=== PATIENT | female | born 1955 | race Caucasian/White ===

== ENCOUNTER → 2024-08-25 14:33 | Outpatient (REF) | payer MEDICARE, SELFPAY | LOC: EMG 14:33 | PROVIDERS: ATTENDING PHYSICIAN Pain Medicine Interventional Pain Medicine; FAMILY PHYSICIAN Nurse Practitioner | DX: M54.12 Radiculopathy, cervical region (principal) | CPT/HCPCS: 95886; 95911 ==

== ENCOUNTER → 2024-09-14 12:37 | Outpatient (REF) | payer MEDICARE, SELFPAY | LOC: MRI 3T 12:37 | PROVIDERS: ATTENDING PHYSICIAN Pain Medicine Interventional Pain Medicine; FAMILY PHYSICIAN Nurse Practitioner | DX: M54.12 Radiculopathy, cervical region (principal) | CPT/HCPCS: 72141 ==

== ENCOUNTER → 2024-10-07 07:26 | Outpatient (REF) | payer MEDICARE, SELFPAY | LOC: MRI 3T 07:26 | PROVIDERS: ATTENDING PHYSICIAN Specialist; FAMILY PHYSICIAN Nurse Practitioner | DX: G35 Multiple sclerosis (principal) | CPT/HCPCS: 70553; A9575 ==

== ENCOUNTER → 2024-10-22 08:09 | Outpatient (REF) | payer MEDICARE, SELFPAY | LOC: HWWDC 08:09 | PROVIDERS: ATTENDING PHYSICIAN Obstetrics & Gynecology Gynecology; FAMILY PHYSICIAN Nurse Practitioner Adult Health | DX: Z12.31 Encounter for screening mammogram for malignant neoplasm of breast (principal) | CPT/HCPCS: 77063; 77067 ==

== ENCOUNTER 2025-06-30 06:19 | Day surgery (SDC) | payer MEDICARE, SELFPAY | END 2025-06-30 08:58 | disposition home or self-care (01) | LOC: GI 06:19 | PROVIDERS: ATTENDING PHYSICIAN Internal Medicine Gastroenterology | DX: Z12.11 Encounter for screening for malignant neoplasm of colon (principal); D12.3 Benign neoplasm of transverse colon; K57.30 Diverticulosis of large intestine without perforation or abscess without bleeding; Q43.8 Other specified congenital malformations of intestine; K64.8 Other hemorrhoids; K64.4 Residual hemorrhoidal skin tags | CPT/HCPCS: 45380; 88305 ==

== ENCOUNTER 2025-09-17 05:46 | Inpatient (IN) | payer MEDICARE, SELFPAY ==
--- NOTE | 2025-07-10 13:37 | CM ---
CM was updated by orthopedics that patient is pending surgery on 09/17. Due to patient's comorbidities, she may be a candidate for acute rehab. CM spoke with patient and to update on discharge planning barriers to Acute Rehab. Patient stated
that she does not want to go to SNF and would prefer acute rehab.
Patient was tearful that she may not qualify clinically for acute rehab. CM spoke with who stated that if she does not go to rehab then Dr. Majano has another plan. CM questioned regarding Dr. Majano's alternative discharge plan.
Patient's stated that he doesn't know, but Dr. Majano will 'take care of it'.
Cm will remain available as needed for discharge planning.
[2025-09-03 13:40] VITALS: BMI 25.8
[2025-09-03 14:31] VITALS: BMI 25.8
[2025-09-03 14:58] LABS: Hematocrit 41.5 % (37.0-47.0); Hemoglobin 13.6 g/dL (12.0-16.0); Mean Corp Hgb Conc. 32.8 g/dL (33.0-37.0); Mean Corpuscular Volume 90.4 fL (81.0-99.0); Platelet Count 335 10^3/uL (130-400); Red Cell Dist. Width 12.8 % (11.5-14.5)
[2025-09-03 15:31] LABS: ALT (SGPT) 14 U/L (0-35); AST (SGOT) 18 U/L (14-36); Albumin 4.5 g/dl (3.5-5.0); Alkaline Phosphatase 65 U/L (38-126); Blood Urea Nitrogen 22 mg/dl (7-17); Calcium 9.7 mg/dl (8.4-10.2); Carbon Dioxide 30 mmol/L (22-30); Chloride 104 mmol/L (98-107); Estimated Creatinine Clearance 57 ml/min; Glucose 77 mg/dl (70-99); Potassium 4.6 mmol/L (3.5-5.1); Sodium 143 mmol/L (135-145); Total Protein 7.1 g/dl (6.3-8.2); eGFR > 60.00
[2025-09-04 12:38] LABS: Glycohemoglobin (HgbA1c) 5.3 % (4.0-5.9)
--- NOTE | 2025-09-09 13:10 | CM ---
CM spoke with patient patient and patient would be agreeable to SNF. Patient's has suggested [facility] for SNF. CM will continue to follow patient for appropriate discharge plan.
[2025-09-17] VITALS (13 sets, daily range): BP systolic 105–152; BP diastolic 54–85; PULSE 90; O2SAT 98; BMI 25.8
[2025-09-17] MEDS: TYLENOL 650 MG PO ×5 (06:36→23:36)
[2025-09-17] MEDS: NORMOSOL-R/PLASMALYTE-A 1000 IV ×2 (06:37→10:51)
[2025-09-17] MEDS: MOBIC 15 MG PO (06:37)
--- NOTE | 2025-09-17 07:34 | W.PN.UPDATE ---
Update Note
Progress Note Update
L knee OA s/p L TKA w/ Dr Majano 09/17/25
- s/p R TKA, 08/2018, by Dr Majano
DVT prophylaxis - ASA, b/l venous foot pumps
Ambulatory dysfunction
Multiple sclerosis with right sided facial hemispasm, on daily Glatopa
- On fall precautions
- Work w/ PT and OT as able
- Pt advised to bring in Glatopa to be used during inpatient stay
Hypercholesterolemia
Schatzki's ring
Esophageal hyperplastic polyp
Colon polyps
Diverticulosis
Hemorrhoids
Multilevel degenerative disc disease
Restless leg syndrome
Spinal stenosis
Overactive bladder with stress incontinence
Reported MRSA positive right hand wound, prior to 2017; 2 negative swabs since diagnosis
Discharge planning: The patient would likely benefit from a rehab facility upon discharge. [facility] is preferred; however, if she does not qualify, she would be willing to go to [facility] or [facility]. CM aware.
[2025-09-17] MEDS: SUBLIMAZE 25 MCG IV (09:15)
[2025-09-17] MEDS: ULTRAM 50 MG PO (10:12)
[2025-09-17] MEDS: TORADOL 30 MG IV (10:51)
[2025-09-17] MEDS: ANCEF 5 IV ×2 (14:11→22:01)
[2025-09-17] MEDS: FLORASTOR 250 MG PO ×2 (14:11→20:29)
--- NOTE | 2025-09-17 16:01 | W.PN.UPDATE ---
Update Note
Progress Note Update
Patient doing well. VSS. Sitting in a chair OOB and has walked into the bathroom with a walker. Pulm: nonlabored. CV: regular. LLE: Dressing CDI. NVI distally. Able to fully extend. ASA for DVT prophylaxis. With her history of MS, would
benefit from acute rehab if availalble.
[2025-09-17] MEDS: ASPIRIN 325 MG PO (17:30)
--- NOTE | 2025-09-17 19:21 | PTCARENOTE ---
Addendum entered by Alma Johnston RN 09/18/25 00:27:
Pharmacy sent back medication unverified as they have them in their formulary. 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
Original Note:
PCT came to me and informed me that pt took two of her home medications. When I went and spoke with the pt, she admitted to taking her home gabapenting 400mg and baclofen 10mg which she had at bedside. She said that during her workup for surgery,
someone had told her should could bring in those medications from home and take them. I informed the pt that pts cannot administer their own medications from home without them being verified by pharmacy and administered by the RN. Pt agreeable and
apologetic. Pt's gabapentin and baclofen sent to pharmacy for verification. Will continue to monitor.
[2025-09-17] MEDS: LIORESAL 10 MG PO (19:26)
[2025-09-17] MEDS: NEURONTIN 400 MG PO (19:26)
[2025-09-17] MEDS: DECADRON 4 MG PO (20:28)
[2025-09-17] MEDS: SENOKOT 17.2 MG PO (20:29)
[2025-09-17] MEDS: BACTROBAN 2% OINTMENT 1 APPLIC NASAL (20:30)
[2025-09-17] MEDS: COLACE 100 MG PO (20:30)
[2025-09-17] MEDS: PEPCID 20 MG PO (20:31)
[2025-09-18 03:00] VITALS: BP 123/61
[2025-09-18] MEDS: TYLENOL PO (04:52)
--- NOTE | 2025-09-18 07:27 | W.PN.ORTHO ---
Today's Communication / Plan
-
Patient would likely benefit from an acute care rehab short stay with her MS if possible
Assessment
.
Distal Motor Intact: Yes
Dressing:
Clean, dry and intact.
Assessment:
Doing well s/p L TKR
Plan
.
Surgery / Date: 09/17/2025 L TKR DB
DVT Prophylaxis: Aspirin
Activity:
Out of bed.
PT/OT
Discharge Plan: Rehab
Discharge Information:
Patient doing well.
Subjective
.
.:
Patient resting comfortably. OOB yesterday
Vital Signs and Labs
.
Vital Signs and Labs:
Lab Results
09/03/25 13:33
09/03/25 13:33
Temp Pulse Resp BP Pulse Ox
97.6 F 87 20 123/61 96
09/18/25 03:00 09/18/25 03:00 09/18/25 03:00 09/18/25 03:00 09/18/25 03:00
Non-invasive Hgb result: 12.9
Physical Exam
-
Pulm: nonlabored
CV: regular
LLE: Dressing CDI. Calf soft. Able to fully extend.
[2025-09-18 08:01] VITALS: BP 116/60
[2025-09-18] MEDS: SENOKOT 17.2 MG PO (08:27)
[2025-09-18] MEDS: TYLENOL 650 MG PO ×2 (08:27→12:31)
[2025-09-18] MEDS: COLACE 100 MG PO (08:27)
[2025-09-18] MEDS: FLORASTOR 250 MG PO (08:28)
[2025-09-18] MEDS: ASPIRIN 325 MG PO (08:28)
[2025-09-18] MEDS: VITAMIN C 2000 MG PO (08:28)
[2025-09-18] MEDS: BACTROBAN 2% OINTMENT 1 APPLIC NASAL (08:28)
[2025-09-18] MEDS: DECADRON 4 MG PO (08:28)
[2025-09-18] MEDS: MOBIC 15 MG PO (08:28)
--- NOTE | 2025-09-18 08:28 | CM ---
Addendum entered by Brandie Gómez RN 09/18/25 10:47:
[facility] is able to accept today. CM updated orthopedic PA, bedside RN and patient. Patient is enthusiastic for transfer.
PLAN: [facility]
Addendum entered by Brandie Gómez RN 09/18/25 09:28:
Patient has been accepted to [facility]. CM is awaiting final bed availability notification. CM updated patient and .
Original Note:
CM reviewed medical records. Patient has been recommended for Acute Rehab. CM sent referral via [facility] to [facility] rehab. CM further sent referrals to [facility] for an alternative level of care.
PLAN: Pending [facility] Acceptance.
[2025-09-18] MEDS: NON-FORMULARY ITEM 20 MG SC (08:29)
[2025-09-18] MEDS: ULTRAM 50 MG PO (08:37)
--- NOTE | 2025-09-18 10:33 | W.PN.ORTHO ---
Today's Communication / Plan
-
d/c
Assessment
.
Distal Motor Intact: Yes
Dressing:
Clean, dry and intact.
Assessment:
MS-fall precautions
Plan
.
Surgery / Date: 09/17/2025 L TKR DB
DVT Prophylaxis: Aspirin (+SCD device)
Activity:
Out of bed.
PT/OT
Discharge Plan: Rehab
Subjective
.
.:
Patient resting comfortably.
Vital Signs and Labs
.
Vital Signs and Labs:
Lab Results
09/03/25 13:33
09/03/25 13:33
Temp Pulse Resp BP Pulse Ox
98.5 F 88 18 116/60 98
09/18/25 08:01 09/18/25 08:01 09/18/25 08:01 09/18/25 08:01 09/18/25 08:01
Non-invasive Hgb result: 12.9
Physical Exam
-
HEENT: No pallor, cyanosis, or jaundice. Throat clear.
NECK: Supple. No JVD.
RESPIRATORY: Lungs clear to auscultation.
CVS: S1, S2 normal. RRR.� No murmur, rub or gallop.
ABDOMEN: Soft, non-tender. No distension. BS+/normal.
EXTREMITIES: strength equal, no calf pain with palpation
BENCHRO[employer] SHOP OPTICIAN: AOx3. No focal deficits. general operator grossly intact
--- NOTE | 2025-09-18 10:35 | W.DS.TRANS ---
DC Summary - [facility]
-
Discharge Instructions:
Sleep Apnea Risk Low
Discharge Diagnosis/Procedures L knee OA s/p L TKA w/ Dr Majano 09/17/25
Diet Regular
Additional Diets Adequate hydration, minimize opioids, and wear
TEDs stockings to prevent low blood pressure/
dizziness.
Activity As tolerated,With Walker
Driving Restrictions Not until seen by your Dr
Bathing Restrictions OK to Shower
Other Services PT,OT
Wound Care Dressing to be removed 1 week post-surgery.
Bj to be removed at 2 week follow-up with
surgeon's office.
Instructions:
Stand-Alone Forms: Total Hip/Knee Replacement D/C
Changes to Home Medications: Yes
Discharge Medications:
DC Medications w/original date entered in [facility]
gabapentin 400 mg capsule 400 mg PO HS neuropathic pain 07/15/18
Fish Oil 2 cap PO DAILY Supplement 08/31/25
Held on 09/17/25. Instructions: Resume on 09/24/25.
ascorbic acid (vitamin C) 1,000 mg tablet (Vitamin C) 2,000 mg PO DAILY Supplement 08/31/25
baclofen 10 mg tablet 10 mg PO HS Muscle Spasms 08/31/25
calcium carbonate (Calcium 600) 1,200 mg PO DAILY Supplement 08/31/25
glatiramer 20 mg/mL subcutaneous syringe (Glatopa) 20 mg SC DAILY Multiple sclerosis, relap 08/31/25
mupirocin 2 % topical ointment 1 applic intranasal BID #1 tube 09/03/25
cefadroxil 500 mg capsule 500 mg PO BID #14 caps 09/14/25
dexamethasone 4 mg tablet 4 mg PO BID Anti-inflammatory #5 tabs 09/14/25
famotidine 20 mg tablet (Pepcid) 20 mg PO HS #30 tabs 09/14/25
meloxicam 15 mg tablet 15 mg PO DAILY #14 tabs 09/14/25
ondansetron HCl 4 mg tablet 4 mg PO Q6H PRN nausea and vomiting #30 tabs 09/14/25
tramadol 50 mg tablet 50 - 100 mg (1 - 2 x 50 mg) PO Q6H PRN moderate-severe pain #15 tabs 09/14/25
Saccharomyces boulardii 250 mg capsule (Florastor) 250 mg PO BID #14 caps 09/17/25
acetaminophen 325 mg tablet 650 mg (2 x 325 mg) PO Q4HWA #30 tabs 09/17/25
aspirin 325 mg tablet 325 mg PO DAILY #30 tabs 09/17/25
docusate sodium 100 mg capsule 100 mg PO BID #30 caps 09/17/25
polyethylene glycol 3350 17 gram oral powder packet (Miralax) 17 g PO DAILY PRN Constipation #14 ea 09/17/25
sennosides 8.6 mg tablet (Yoly-sal) 17.2 mg (2 x 8.6 mg) PO BID #30 tabs 09/17/25
Home Medication Changes
mupirocin 2 % topical ointment 1 applic intranasal BID #1 tube 09/03/25
cefadroxil 500 mg capsule 500 mg PO BID #14 caps 09/14/25
dexamethasone 4 mg tablet 4 mg PO BID Anti-inflammatory #5 tabs 09/14/25
famotidine 20 mg tablet (Pepcid) 20 mg PO HS #30 tabs 09/14/25
meloxicam 15 mg tablet 15 mg PO DAILY #14 tabs 09/14/25
ondansetron HCl 4 mg tablet 4 mg PO Q6H PRN nausea and vomiting #30 tabs 09/14/25
tramadol 50 mg tablet 50 - 100 mg (1 - 2 x 50 mg) PO Q6H PRN moderate-severe pain #15 tabs 09/14/25
Saccharomyces boulardii 250 mg capsule (Florastor) 250 mg PO BID #14 caps 09/17/25
acetaminophen 325 mg tablet 650 mg (2 x 325 mg) PO Q4HWA #30 tabs 09/17/25
aspirin 325 mg tablet 325 mg PO DAILY #30 tabs 09/17/25
docusate sodium 100 mg capsule 100 mg PO BID #30 caps 09/17/25
polyethylene glycol 3350 17 gram oral powder packet (Miralax) 17 g PO DAILY PRN Constipation #14 ea 09/17/25
sennosides 8.6 mg tablet (Yoly-sal) 17.2 mg (2 x 8.6 mg) PO BID #30 tabs 09/17/25
Pending Results: No
[2025-09-18 12:04] VITALS: BP 120/68
== END 2025-09-18 12:56 | DRG 470 ==
LOC: 2 SOUTH 05:46
PROVIDERS: ADMITTING PHYSICIAN Orthopaedic Surgery; FAMILY PHYSICIAN Nurse Practitioner Adult Health; REFERRING PHYSICIAN Specialist
PROC: 0SRD0J9 Replacement of Left Knee Joint with Synthetic Substitute, Cemented, Open Approach (ICD-10-PCS; 2025-09-17)
DX: M17.12 Unilateral primary osteoarthritis, left knee (principal); E78.00 Pure hypercholesterolemia, unspecified; K57.30 Diverticulosis of large intestine without perforation or abscess without bleeding; G35.D Multiple sclerosis, unspecified; G25.81 Restless legs syndrome; N32.81 Overactive bladder; N39.3 Stress incontinence (female) (male); M48.00 Spinal stenosis, site unspecified; Z88.2 Allergy status to sulfonamides
CPT/HCPCS: 73560; 80053; 83036; 85027; 87070; 97116; 97163; 97167; C1713; C1776

== ENCOUNTER 2025-09-19 22:01 | Emergency (ER) | payer MEDICARE, SELFPAY ==
[2025-09-19 22:09] VITALS: BP 127/74
[2025-09-19 22:18] VITALS: BMI 27.6
[2025-09-19 22:19] VITALS: BP 108/69
[2025-09-19 22:33] VITALS: BP 115/64
[2025-09-19 22:34] LABS: Hematocrit 36.7 % (37.0-47.0); Hemoglobin 12.3 g/dL (12.0-16.0); Mean Corp Hgb Conc. 33.5 g/dL (33.0-37.0); Mean Corpuscular Volume 87.4 fL (81.0-99.0); Nucleated Red Blood Cells % 0 %; Platelet Count 328 10^3/uL (130-400); Red Cell Dist. Width 13.0 % (11.5-14.5)
[2025-09-19] MEDS: NSS 1000 IV (22:38)
[2025-09-19 22:58] LABS: ALT (SGPT) 14 U/L (0-35); AST (SGOT) 18 U/L (14-36); Albumin 3.7 g/dl (3.5-5.0); Alkaline Phosphatase 81 U/L (38-126); Blood Urea Nitrogen 24 mg/dl (7-17); Calcium 9.0 mg/dl (8.4-10.2); Carbon Dioxide 25 mmol/L (22-30); Chloride 107 mmol/L (98-107); Estimated Creatinine Clearance 74 ml/min; Glucose 115 mg/dl (70-99); Magnesium 1.9 mg/dl (1.6-2.3); Potassium 4.2 mmol/L (3.5-5.1); Sodium 135 mmol/L (135-145); Total Protein 6.4 g/dl (6.3-8.2); eGFR > 60.00
[2025-09-19 23:00] VITALS: BP 114/63
--- NOTE | 2025-09-19 23:24 | ED.GENMED ---
History of Present Illness
General
Chief Complaint: Heart Rate Problem
Source: patient
Time Seen by Provider: 09/19/25 22:18
History of Present Illness
History of Present Illness:
Note:
CHIEF COMPLAINT(S)
Increased heart rate diagnosed during vital sign check after knee replacement surgery.
HISTORY OF PRESENT ILLNESS
The patient is a 70-year-old female who experienced an elevated heart rate following physical therapy after recent knee replacement surgery. She underwent the surgery on and reported having three hours of physical therapy today, during
which she experienced significant discomfort. The elevated heart rate was noted during routine vital sign checks and was not accompanied by subjective symptoms such as palpitations, fluttering sensations, chest pain, or shortness of breath. She has
a history of similar episodes during a previous colonoscopy, though no definitive diagnosis of atrial fibrillation was made, and no follow-up with cardiology was required. The patient is currently on aspirin.
PAST MEDICAL AND SURGICAL HISTORY
Recent knee replacement surgery on the left knee.
MS
CHRONIC MEDICAL CONDITIONS SIGNIFICANTLY AFFECTING CARE
Chronic left facial nerve palsy.
ALLERGIES
Sulfa drugs.
REVIEW OF SYSTEMS
- Cardiovascular: No chest pain, no palpitations, history of episodic tachycardia noted during colonoscopy.
- Respiratory: No shortness of breath, no coughing up blood.
- General: No subjective complaints of palpitations or discomfort leading to the raised heart rate diagnosis.
PHYSICAL EXAM
General: Alert, no acute distress.
Skin: Warm and dry.
Head: Normocephalic, atraumatic. Left facial nerve palsy noted as chronic.
Neck: Supple, trachea midline.
Eye, Ears, Nose, Mouth, and Throat: Oral mucosa moist.
Cardiovascular: Heart regular but tachycardic. No edema. Normal peripheral perfusion.
Respiratory: Lungs clear to auscultation, respirations non-labored.
Gastrointestinal: Abdomen nondistended.
Back: Normal range of motion, normal alignment.
Musculoskeletal: Presence of dressing with some swelling over the left lower limb, no redness or drainage. Normal range of motion maintained.
Neurological: Alert and oriented to person, place, time, and situation.
Psychiatric: Cooperative, appropriate mood, and affect.
PROBLEM LIST
- Acute tachycardia
- Postoperative pain and discomfort following knee replacement surgery
- Chronic left facial nerve palsy
PLAN
- Initiate fluid resuscitation to address possible dehydration from recent surgery and physical therapy.
- Administer medications to reduce heart rate
- Monitor vital signs closely to assess for resolution of tachycardia.
- Consider alternative options if the heart rate does not normalize, with further conversation to address next steps if necessary.
DIFFERENTIAL DIAGNOSIS
The Differential Diagnosis includes, in no particular order and is not limited to:
- Postoperative atrial tachycardia
- Dehydration following surgery
- Medication side effects (such as those from anesthetics or postoperative medications)
- Pulmonary embolism
- Electrolyte abnormalities
- Pain or discomfort from physical therapy as a trigger
- Atrial fibrillation or flutter
- Anesthesia-related cardiac effects
- Stress or anxiety-related palpitations
- Underlying cardiac arrhythmia not previously diagnosed
EKG
My independent EKG interpretation is:
- Rhythm: Atrial Fibrillation
- Heart Rate: 146 bpm
- [place]: Normal
- QRS Interval: Normal
- Notable Abnormalities: None mentioned
Disposition:
SUMMARY OF ENCOUNTER
The patient is a 70-year-old female who presented with a history of rapid atrial fibrillation two days post knee replacement surgery. She had a previous episode of a fast heart rate during a colonoscopy without a definitive diagnosis. Upon arrival,
the patient converted to normal sinus rhythm and remained stable throughout the evaluation.
DISPOSITION
Patient to be discharged with follow-up care.
ASSESSMENT
1. Acute atrial fibrillation, post-surgery
2. Previous episodes of tachycardia without diagnosis
EMERGENCY TREATMENTS ADMINISTERED
Patient transitioned to normal sinus rhythm spontaneously.
MANAGEMENT OF THE PATIENTS CARE WAS DISCUSSED WITH
Discussion with orthopedics confirmed it was appropriate to restart anticoagulation with apixaban
Discussion with cardiology, Dr. Frazier, recommended restarting apixaban and initiating diltiazem ER (Cardizem CD) 120 mg.
PLAN
- Restart apixaban (Eliquis) for anticoagulation.
- Initiate diltiazem extended-release 120 mg daily.
- Discharge with follow-up arranged with the cardiology department who will follow her at [facility].
INDEPENDENT REVIEW OF LABS AND INTERPRETATION OF TESTS
My independent review of CBC indicates slight leukocytosis at 13.1.
PATIENT EDUCATION AND COUNSELING
The patient was advised on the importance of follow-up care with cardiology, adherence to prescribed medications, and monitoring for any recurrent symptoms.
FOLLOW-UP INSTRUCTIONS
Follow up with cardiology at [facility] as arranged, and ensure regular monitoring post-discharge.
MEDICATION RECONCILIATION
- start apixaban (Eliquis).
- Diltiazem extended-release (Cardizem CD) 120 mg daily.
MEDICAL DECISION MAKING
Number and Complexity of Problems Addressed: Chronic conditions affecting care include history of episodic tachycardia.
- Data:
Category 1
- CBC reviewed.
Category 2
- My independent interpretation of EKG showed conversion to normal sinus rhythm.
Category 3
- Discussion of management with orthopedics and cardiology, Dr. Wheeler.
-Risk:
Prescription medication was prescribed: apixaban and diltiazem ER.
DIAGNOSIS
1. Atrial fibrillation, postoperative (ICD-10: I48.91)
Past History
Past History
ED Past Medical History: Other (multiple sclerosis)
Social History
Personal:
Phy Exam
Physical Exam
Physical Exam:
.
Course
Orders/Labs/Results
Orders:
Orders
09/19/25 22:03
EKG [Electrocardiogram (*1)] Urgent
Reason for Study: Atrial Fibrillation
EKG- Treatment ONCE
09/19/25 22:27
Complete Blood Count/With Diff Urgent
Comprehensive Metabolic Panel Urgent
Free T4 Urgent
Magnesium Urgent
TSH Reflex To Free T4 Urgent
09/19/25 22:31
0.9% Sodium Chloride 1000 ml [Nss] 1,000 ml IV BOLUS
09/19/25 22:33
EKG [Electrocardiogram (*1)] Urgent
Reason for Study: Atrial Fibrillation
EKG- Treatment ONCE
09/19/25 23:24
Apixaban [Eliquis] 5 mg PO NOW ONE
09/19/25 23:38
Diltiazem Extended Release [Cardizem Cd] 120 mg PO NOW STA
Abnormal Lab Results
09/19/25
22:27
WBC 13.1 H 10^3/uL
(4.8-10.8)
Hct 36.7 L %
(37.0-47.0)
MPV 10.8 H fL
(7.4-10.4)
Abs Immat Gran (auto) 0.1 H 10^3/uL
(0-0.05)
Absolute Neuts (auto) 10.1 H 10^3/uL
(1.4-6.5)
Absolute Monos (auto) 1.2 H 10^3/uL
(0.1-0.6)
Neutrophils % 77.2 H %
(42.2-75.2)
Lymphocytes % 12.9 L %
(20.5-51.1)
BUN 24 H mg/dl
(7-17)
Creatinine 0.5 L mg/dL
(0.6-1.0)
Glucose 115 H mg/dl
(70-99)
TSH (Reflex) 0.31 L uIU/ml
(0.47-4.68)
09/19/25 22:27
09/19/25 22:27
Vital Signs
Initial and Last Documented VS:
Initial Vital Signs
Temp Pulse Resp BP Pulse Ox
98.3 F 148 20 127/74 95
09/19/25 22:09 09/19/25 22:09 09/19/25 22:09 09/19/25 22:09 09/19/25 22:09
Last Documented Vital Signs
Temp Pulse Resp BP Pulse Ox
98.3 F 86 15 126/67 94
09/19/25 22:09 09/20/25 00:04 09/20/25 00:00 09/20/25 00:04 09/20/25 00:00
*Pulse Oximetry
SaO2: 96
Oxygen Mode of Delivery: Room air
Patient hypoxic: no
*Outside Sales Associate Interpretation
Rate: tachycardiac
Interpretation: abnormal
Rhythm: a-fib
*Critical Care Note
Total Time (30-74mins, 75-104mins- exclusive of procedures): 30 minutes
ED Attending Note
-
Portions of this chart may have been created with voice recognition software.� Occasional wrong word or��sound alike� substitutions may have occurred due to the inherent limitations of voice recognition software.
Discharge Plan
Departure
Patient Disposition: Home (Routine Discharge)
Date of Disposition: 09/19/25
Time of Disposition: 23:30
Patient with high blood pressure during this ER visit?: No
Discharge Problem:
Atrial fibrillation with RVR
Instructions: Atrial Fibrillation (DC)
Prescriptions:
New
diltiazem HCl [Cardizem CD] 120 mg capsule,extended release 24hr
120 mg PO DAILY Qty: 30 0RF
Rx Instructions:
start 09/20/25
Eliquis 5 mg tablet
5 mg PO BID Qty: 30 0RF
No Action
gabapentin 400 MG capsule
400 mg PO HS
ascorbic acid (vitamin C) [Vitamin C] 1,000 mg Tablet
2,000 mg PO DAILY
calcium carbonate [Calcium 600] 600 mg calcium (1,500 mg) Tablet
1,200 mg PO DAILY
baclofen 10 mg Tablet
10 mg PO HS
glatiramer [Glatopa] 20 mg/mL Syringe
20 mg SC DAILY
Fish Oil
2 cap PO DAILY
mupirocin 2 % ointment
1 applic intranasal BID Qty: 1 0RF
Patient Comments:
started treatment on sunday09/14/25 and completed BID, last took at home 09/16/15 pm
tramadol 50 mg tablet
50 - 100 mg PO Q6H PRN (Reason: moderate-severe pain) Qty: 15 0RF
Rx Instructions:
1 tab for moderate pain, 2 if severe.
Dx total joint.
meloxicam 15 mg tablet
15 mg PO DAILY Qty: 14 0RF
Rx Instructions:
Take with food.
DO NOT take within 2 hours of Aspirin.
dexamethasone 4 mg tablet
4 mg PO BID Qty: 5 0RF
Rx Instructions:
Restart night of discharge and continue twice a day until finished.
Take with food.
ondansetron HCl 4 mg tablet
4 mg PO Q6H PRN (Reason: nausea and vomiting) Qty: 30 0RF
famotidine [Pepcid] 20 mg tablet
20 mg PO HS Qty: 30 0RF
Rx Instructions:
Take nightly while on post-surgical narcotics to prevent GI upset.
cefadroxil 500 mg capsule
500 mg PO BID Qty: 14 0RF
Rx Instructions:
Start night of discharge and continue twice a day until finished.
Take with probiotic.
aspirin 325 mg Tablet
325 mg PO DAILY Qty: 30 0RF
Rx Instructions:
Take daily x4 weeks for blood clot prevention
docusate sodium 100 mg Capsule
100 mg PO BID Qty: 30 0RF
sennosides [Yoly-sal] 8.6 mg Tablet
17.2 mg PO BID Qty: 30 0RF
acetaminophen 325 mg Tablet
650 mg PO Q4HWA Qty: 30 0RF
Rx Instructions:
DO NOT exceed >4000 mg daily.
Saccharomyces boulardii [Florastor] 250 mg capsule
250 mg PO BID Qty: 14 0RF
Rx Instructions:
Over the counter. Take while on antibiotic.
If unavailable, choose a different probiotic.
polyethylene glycol 3350 [Miralax] 17 gram powder in packet
17 g PO DAILY PRN (Reason: Constipation) Qty: 14 0RF
Rx Instructions:
Add to bowel regimen of Colace and Senna should no bowel movement occur within 48-72 hours post-surgery.
Referrals:
schier [Other]
Radha Sinclair CRNP [Family Provider, General]
Katy Awad DO [Active, Cardiology]
Activity Restrictions/Additional Instructions:
Please follow-up with cardiology in the next 3 to 5 days. Please stop any aspirin products. Please also have caution with any nonsteroidal anti-inflammatory medications. Return immediately for chest pain, shortness of breath, palpitations,
lightheadedness, passing out episode, bleeding of any kind, blood in your stool or any other concerns.
Interventions
Interventions:
*Risk Screen - Suicide Last Done: 09/19/25 22:09
*General Assessment Last Done: 09/19/25 22:09
*Neglect/Abuse Screening Last Done: 09/19/25 22:09
*ED- Fall Risk Assessment Last Done: 09/19/25 22:19
*ED COVID-19 Vaccine History Last Done: 09/19/25 22:19
*ED Influenza Vaccine History Last Done: 09/19/25 22:19
*Nursing Disposition Last Done: 09/20/25 00:18
ED- Cardiac Assessment Last Done: 09/19/25 22:31
ED- Pulmonary Assessment Last Done: 09/19/25 22:31
Discharge Date and Time
Discharge Date/Time: 09/20/25 00:20
Print Language: THAI
[2025-09-20] VITALS: BP 126/67
[2025-09-20] MEDS: ELIQUIS 5 MG PO (00:04)
[2025-09-20] MEDS: CARDIZEM CD 120 MG PO (00:04)
== END 2025-09-20 00:20 | disposition home or self-care (01) ==
LOC: EMR 22:01
PROVIDERS: EMERGENCY PHYSICIAN Emergency Medicine; FAMILY PHYSICIAN Nurse Practitioner Adult Health
DX: I48.91 Unspecified atrial fibrillation (principal); D72.829 Elevated white blood cell count, unspecified; G35.D Multiple sclerosis, unspecified; Z79.01 Long term (current) use of anticoagulants; Z79.82 Long term (current) use of aspirin; Z96.652 Presence of left artificial knee joint; Z88.2 Allergy status to sulfonamides
CPT/HCPCS: 99284; 96360; 80053; 83735; 84439; 84443; 85025; 93005

== ENCOUNTER → 2025-10-08 13:29 | Outpatient (REF) | payer MEDICARE, SELFPAY | LOC: HWRCS 13:29 | PROVIDERS: ATTENDING PHYSICIAN Internal Medicine Interventional Cardiology; FAMILY PHYSICIAN Nurse Practitioner Adult Health | DX: I48.91 Unspecified atrial fibrillation (principal) | CPT/HCPCS: 93306 ==

== ENCOUNTER 2025-10-19 06:56 | Day surgery (SDC) | payer MEDICARE, SELFPAY | END 2025-10-19 08:24 | disposition home or self-care (01) | LOC: CATH 06:56 | PROVIDERS: ATTENDING PHYSICIAN Student in an Organized Health Care Education/Training Program; FAMILY PHYSICIAN Nurse Practitioner Adult Health | DX: I48.91 Unspecified atrial fibrillation (principal); Z53.09 Procedure and treatment not carried out because of other contraindication ==